=== PATIENT | male | born 1965 | race Caucasian/White ===

== ENCOUNTER 2019-05-25 23:18 | Emergency (ER) | payer BC ==
[~2019-05-25] VITALS: Ht 167.6 cm; Wt 84.0 kg
[2019-05-26 00:14] LABS: URINE BILIRUBIN - DIPSTICK NEGATIVE (NEGATIVE); URINE BLOOD DIPSTICK NEGATIVE (NEGATIVE); URINE CLARITY CLEAR; URINE COLOR YELLOW; URINE GLUCOSE - DIPSTICK NEGATIVE (NEGATIVE); URINE KETONE NEGATIVE (NEGATIVE); URINE LEUK ESTERASE NEGATIVE (Negative); URINE NITRITE - DIPSTICK NEGATIVE (Negative); URINE PROTEIN - DIPSTICK NEGATIVE (NEG-TRACE); URINE UROBILINOGEN - DIPSTICK 0.2 E.U./dL (0.2)
[2019-05-26 00:15] LABS: BARBITURATES NEGATIVE (NEGATIVE); COCAINE NEGATIVE (NEGATIVE); METHADONE NEGATIVE (NEGATIVE); OXCYCODONE NEGATIVE (NEGATIVE); TETRAHYDROCANNABIONOL NEGATIVE (NEGATIVE); TRICYLIC ANTIDEPRESSANTS NEGATIVE (NEGATIVE)
[2019-05-26 01:41] LABS: CREATININE 1.5 mg/dL (0.7-1.3); POTASSIUM 4.1 mmol/l (3.5-5.1)
[2019-05-26] MEDS ORDERED: PERCOCET 5/325M1 TAB PO (04:28)
[2019-05-26 05:07] VITALS: BP 148/71
== END 2019-05-26 05:05 | disposition home or self-care (01) | DRG 563 ==
LOC: EDBD 23:18 → ED 23:18
PROVIDERS: Emergency Medicine
DX: S43.111A Subluxation of right acromioclavicular joint, initial encounter (principal); S22.31XA Fracture of one rib, right side, initial encounter for closed fracture; V86.55XA Driver of 3- or 4- wheeled all-terrain vehicle (ATV) injured in nontraffic accident, initial encounter; Y92.832 Beach as the place of occurrence of the external cause
CPT/HCPCS: Q9967